=== PATIENT | male | born 2000 | race Hispanic/Latino ===

== ENCOUNTER 2023-04-21 21:22 | Emergency (ER) | payer SELFPAY ==
[2023-04-21 21:55] LABS: #Monocytes 0.6 thou/uL (0.11-0.59); #Neutrophils 2.2 thou/uL (1.40-6.50); %Basophils 0.4 % (0.0-1.0); %Eosinophils 0.2 % (0.0-10.0); %Lymphocytes 38.5 % (21.0-51.0); %Monocytes 12.1 % (0.0-10.0); %Neutrophils 48.6 % (42.0-75.0); Hemoglobin 15.2 g/dL (14.0-18.0); Mean Corpuscular HGB CONC 34.5 g/dL (32.0-36.0); Mean Corpuscular Hemoglobin 30.6 pg (27.0-31.0); Mean Corpuscular Volume 88.7 fl (78.0-98.0); Mean Platelet Volume 10.4 fL (7.4-10.4); Platelet Count 235 10x3/uL (130-400); RBC Distribution Width 12.4 % (11.5-14.5); Red Blood Cell (RBC) Count 4.96 mill/uL (4.70-6.10); White Blood Cell (WBC) Count 4.6 10x3/uL (4.8-10.8)
[2023-04-21] MEDS ORDERED: LORazepam 2 MG/ML SYR.(CARPUJECT) ONE (22:03)
[2023-04-21 22:17] LABS: ALT (SGPT) 32 U/L (8-55); AST (SGOT) 22 U/L (5-34); Albumin 4.6 g/dL (3.5-5.0); Alkaline Phosphatase 74 U/L (40-110); Anion Gap 17 mmol/L (10-20); BUN (Urea Nitrogen) 9 mg/dL (8.9-20.6); Bilirubin, Total 0.3 mg/dL (0.2-1.2); Calc. Creatinine Clearance 0 mL/min (70-130); Calcium 9.1 mg/dL (7.8-10.44); Carbon Dioxide 21 mmol/L (22-29); Chloride 102 mmol/L (98-107); Estimated GFR 126; Globulin 2.8 g/dL (2.4-3.5); Glucose 111 mg/dL (70-105); Protein, Total 7.4 g/dL (6.0-8.3); Sodium 137 mmol/L (136-145)
[2023-04-21 22:22] LABS: Troponin I Less than 0.010 ng/mL (< 0.028)
[2023-04-21 22:40] LABS: Alcohol 42.2 mg/dL (Less than 10); CK (CPK) 292 U/L (30-200); Lipase 19 U/L (8-78)
[2023-04-21] MEDS ORDERED: Potassium Chloride 20 MEQ TAB ONE (22:47)
== END 2023-04-21 22:58 | disposition home or self-care (01) ==
LOC: ERS 21:22
DX: R00.2 Palpitations (principal); E87.6 Hypokalemia
CPT/HCPCS: 71045; 80053; 80307; 82550; 83690; 83735; 84484; 85025; 93005; 96374; J2060